=== PATIENT | male | born 1955 | race Caucasian/White ===

== ENCOUNTER 2017-07-14 16:30 | Outpatient (CLI) | payer BC | END 2017-07-14 16:31 | disposition home or self-care (01) | LOC: SLEEPLAB 16:30 | PROVIDERS: ATTEND Family Medicine | DX: G47.33 Obstructive sleep apnea (adult) (pediatric) (principal); G47.10 Hypersomnia, unspecified; G47.9 Sleep disorder, unspecified; R53.83 Other fatigue; R09.89 Other specified symptoms and signs involving the circulatory and respiratory systems; E66.9 Obesity, unspecified; K21.9 Gastro-esophageal reflux disease without esophagitis; R06.83 Snoring; G47.00 Insomnia, unspecified; F41.8 Other specified anxiety disorders; I10 Essential (primary) hypertension; E11.9 Type 2 diabetes mellitus without complications | CPT/HCPCS: 95806 ==

== ENCOUNTER 2017-07-16 20:30 | Outpatient (CLI) | payer BC | END 2017-07-16 20:31 | disposition home or self-care (01) | LOC: SLEEPLAB 20:30 | PROVIDERS: ATTEND Family Medicine | DX: G47.33 Obstructive sleep apnea (adult) (pediatric) (principal); G47.10 Hypersomnia, unspecified; R53.83 Other fatigue; E66.9 Obesity, unspecified; K21.9 Gastro-esophageal reflux disease without esophagitis; E11.9 Type 2 diabetes mellitus without complications; I10 Essential (primary) hypertension; F41.8 Other specified anxiety disorders | CPT/HCPCS: 95811 ==

== ENCOUNTER 2017-11-25 16:03 | Outpatient (CLI) | payer BC ==
--- NOTE | 2017-11-25 18:14 | CT ---
CT CHEST NONCONTRAST PULMONARY LUNG SCAN LOW DOSE: Date: 11/25/17 HISTORY: Lung nodule screening. Tobacco abuse. COMPARISON: 11/01/16. FINDINGS: Lungs are well inflated. No focal mass. Scattered vascular calcifications are apparent within the pul monary vessels. Minimal calcification in the aortic arch. Calcification of the coronary arteries. Lack of contrast limits evaluation of the soft tissues. No bulky mediastinal adenopathy. Postoperativ e changes cervical spine. IMPRESSION: 1. Lung-RADS Category 1 - Negative. Suggest routine follow-up. 2. Atherosclerosis. POS: [facility]
== END 2017-11-25 16:04 | disposition home or self-care (01) ==
LOC: CT 16:03
PROVIDERS: ATTEND Family Medicine
DX: F17.210 Nicotine dependence, cigarettes, uncomplicated (principal); I70.90 Unspecified atherosclerosis
CPT/HCPCS: G0297

== ENCOUNTER 2017-12-04 06:28 | Day surgery (SDC) | payer BC ==
[2017-12-03 09:19] VITALS: BMI 31.4
[2017-12-04] MEDS ORDERED: Bupivacaine PF 0.5% 30 ML VIAL ONE (06:35)
[2017-12-04] MEDS ORDERED: Lidocaine 1% w/Epinephrine 1:100K 30 ML VIAL ONE (06:35)
[2017-12-04] MEDS ORDERED: Lidocaine 1% (PF) 30 ML VIAL ONE (06:36)
[2017-12-04] MEDS ORDERED: Bupivacaine HCl 0.5%/Epinephrine 1:200,000/PF 30 ml Vial ONE (08:15)
[2017-12-04] MEDS ORDERED: Fentanyl 100 MCG/2 ML VIAL ONE (09:01)
[2017-12-04] MEDS ORDERED: Midazolam HCl 2 mg/2 ml Vial ONE (09:02)
--- NOTE | 2017-12-04 13:38 | OP ---
DATE OF PROCEDURE: 12/04/2017 PREOPERATIVE DIAGNOSES: 1. Dupuytren's contracture of the left ring finger. 2. Digital nerve injury, left ring finger. 3. Skin lesion left hand. POSTOPERATIVE DIAGNOSES: 1. Dupuytren's contracture of the left ring finger. 2. Digital nerve injury, left ring finger. 3. Skin lesion left hand. PROCEDURES: 1. Exploration of left palm and ring finger with excision of Dupuytren's cords. 2. Repair of the ulnar digital nerve, repair of the radial digital nerve to the ring finger. 3. Excision of skin lesion left hand. SURGEON: Gadiel De La Rosa M.D. OPERATIVE NOTE: The patient was brought to the operating room and after administration of general an esthetic intubation, the left upper extremity was prepped and draped in the usual fashion and the gelacio rniquet was inflated. A longitudinal zigzag Lisa type incision was made starting in the palm and extending out to the lev el of the DIP joint of the ring finger. Very carefully triangular flaps were reflected exposing Dupu ytren's cords which were carefully excised. The radial digital nerve and the ulnar digital nerve to the ring finger were both carefully inspected in the palm and did not appear to have any injury to th em. The dissection was then carried out into the finger resecting more of the Dupuytren's cord and o n the radial side of the ring finger at about the level of the PIP joint the nerve was stuck to the D upuytren's cord and was about 70% lacerated at this level. The cord was resected and the nerve was c leaned off. The dorsal branch of the digital nerve was just proximal to the area of injury. A secon d area of injury was found just proximal to the first area where the epineurium had been skived off o f the nerve and the fascicles were exposed. A 3 mm conduit was presoaked in saline and then cut into 2 pieces and the shorter piece was placed around the 70% laceration after cleaning up the ends. Thi s was done by longitudinally splitting the conduit and then wrapping it around the nerve and sewing i t snug on each end. The longer portion of the conduit was then placed around the area just proximal to this, again in the same manner using 9-0 suture to secure the conduit. The wound was then copious ly irrigated, the tourniquet was released and the skin was closed with 5-0 nylon sutures. 0.5% Michael ine with epinephrine was injected into the skin. The hand was turned over and a 4 mm lesion was identified over the dorsum of the fifth metacarpal hea d. An excisional biopsy was done longitudinally and elliptically and a 4-0 silk stitch was placed in the distal end of the excised skin. A generous cuff of tissue was taken around the lesion measuring approximately 4-5 mm. The skin lesion was then sent to pathology. The skin was closed with interru pted 5-0 nylon sutures. A well-padded bulky dressing was applied and the patient was taken to the re covery room in satisfactory condition. He was monitored. When he was awake and stable, he was discharged home. He was given prescriptions for pain medication, wound care instructions, and followup appointment.
[2017-12-04] MEDS ORDERED: HYDROcodone/Acetaminophen 5/325 mg Tablet ONE (14:01)
[2017-12-04] MEDS ORDERED: Glycopyrrolate 0.2 MG/ML 5 ML SYRINGE ONE (14:26)
[2017-12-04] MEDS ORDERED: PROPOFOL 200 MG/20 ML VIAL ONE (14:26)
[2017-12-04] MEDS ORDERED: Lidocaine 1% PF 5 ML VIAL ONE (14:26)
== END 2017-12-04 14:18 | disposition home or self-care (01) ==
LOC: SDC 06:28
PROVIDERS: ATTEND Orthopaedic Surgery
PROC: 0LN80ZZ Release Left Hand Tendon, Open Approach (ICD-10-PCS; principal; 2017-12-04)
PROC: 01R Peripheral Nervous System, Replacement (ICD-10-PCS; principal; 2017-12-04)
PROC: 0JNK0ZZ Release Left Hand Subcutaneous Tissue and Fascia, Open Approach (ICD-10-PCS; principal; 2017-12-04)
PROC: 0HBGXZZ Excision of Left Hand Skin, External Approach (ICD-10-PCS; principal; 2017-12-04)
DX: S64.495A Injury of digital nerve of left ring finger, initial encounter (principal); L82.1 Other seborrheic keratosis; M72.0 Palmar fascial fibromatosis [Dupuytren]; E11.9 Type 2 diabetes mellitus without complications; Z79.82 Long term (current) use of aspirin; Z79.84 Long term (current) use of oral hypoglycemic drugs; Z79.899 Other long term (current) drug therapy
CPT/HCPCS: 88305; 93005; 93010; J0670; J2001; J2250; J2704; J3010; S0020

== ENCOUNTER 2018-04-15 08:49 | Outpatient (CLI) | payer BC ==
--- NOTE | 2018-04-15 11:02 | ULT ---
THYROID ULTRASOUND: 04/15/2018 HISTORY: Thyroid nodules. Follow-up evaluation. COMPARISON: 03/11/2016 FINDINGS: The right lobe of the thyroid gland measures 4.9 cm x 2.4 cm x 1.9 cm, with the left lobe measuring 5 .1 cm x 2.2 cm x 1.8 cm. The thyroid isthmus measures 0.34 cm in AP dimension. There are several small, subcentimeter, heterogeneous, and hypoechoic nodules seen within each lobe o f the thyroid gland. The largest nodules are seen within the inferior pole, right lobe of the thyroi d gland, with two heterogeneous nodules present, each measuring approximately 1.1 cm in maximal dimen sions. There was a heterogeneous nodule on the prior exam, which measured approximately 1.1 cm, with a hypoechoic nodule seen on the prior exam, measuring approximately 1 cm. Additional much smaller, less than 1 cm, slightly heterogeneous nodules are present within each lobe of the thyroid gland, which measure less than 0.8 cm. There are at least three slightly heterogeneou s nodules within the junction of the mid portion and superior pole, of each lobe of the thyroid gland , as well as a small, hypoechoic nodule in the region of the thyroid isthmus. The nodules in the inf erior pole, left lobe of the thyroid gland, noted on the prior exam, are not visualized on today's st udy. IMPRESSION: 1. Multinodular thyroid gland, with the largest nodules again present at the inferior pole, right lo be of the thyroid gland, measuring 1.1 cm. 2. There was mention of a soft tissue lesion abutting the inferior margin of the left lobe of the th yroid gland, on CT examination from 08/27/2016. This is not visualized on the provided sonographic i mages on today's examination. POS: [facility]
== END 2018-04-15 08:50 | disposition home or self-care (01) ==
LOC: SCSULT 08:49
PROVIDERS: ATTEND Otolaryngology Plastic Surgery within the Head & Neck
DX: E04.2 Nontoxic multinodular goiter (principal)
CPT/HCPCS: 76536

== ENCOUNTER 2018-08-19 06:59 | Outpatient (CLI) | payer BC ==
--- NOTE | 2018-08-19 07:40 | ULT ---
Sonogram abdomen complete HISTORY: Upper abdomen pain. FINDINGS: Gallbladder has a normal appearance. Common duct is 0.5 cm. Liver unremarkable without foca l mass or intrahepatic biliary dilatation. No free fluid. Prominence of the spleen and kidneys are within normal limits allowing for the patient's size. Visualized portions of the abdominal aorta, IVC , and pancreas are unremarkable. IMPRESSION: Normal abdominal sonogram.
== END 2018-08-19 07:00 | disposition home or self-care (01) ==
LOC: SCSULT 06:59
PROVIDERS: ATTEND Family Medicine
DX: R10.84 Generalized abdominal pain (principal)
CPT/HCPCS: 76700

== ENCOUNTER 2018-12-16 15:52 | Outpatient (CLI) | payer BC ==
--- NOTE | 2018-12-16 19:33 | CT ---
CT pulmonary lung scan without IV contrast INDICATION: Lung cancer screening protocol; current smoker; 1 pack per day for 40+ years COMPARISON: Prior exam dated November 25, 2017 FINDINGS: LUNGS: Nodules\mass: No suspicious pulmonary nodules are present. There is subsegmental volume loss involvin g both lower lobes. Emphysema: There is mild scattered centrilobular emphysema Additional findings: There are coronary artery and thoracic aortic calcifications. No pathologically enlarged lymph nodes are evident. Mediastinum: There are stable few shotty appearing lymph nodes seen along the esophagus. Upper abdomen: No abnormality. Osseous structures: No acute abnormality.. IMPRESSION: Lung-RADS Category 1: Negative- Continue annual screening with LDCT in 12 months. Category S: None. Category C: Not applicable.
== END 2018-12-16 15:53 | disposition home or self-care (01) ==
LOC: CT 15:52
PROVIDERS: ATTEND Family Medicine
DX: F17.210 Nicotine dependence, cigarettes, uncomplicated (principal)
CPT/HCPCS: G0297

== ENCOUNTER 2019-02-16 00:46 | Emergency (ER) | payer BC ==
[2019-02-16] MEDS ORDERED: Lidocaine 1% w/Epinephrine 1:100K 20 ML VIAL ONE (00:56)
[2019-02-16] MEDS ORDERED: Ondansetron PF 4 MG/2 ML Vial ONE (00:56)
[2019-02-16] MEDS ORDERED: Morphine 4 MG/ML VIAL ONE (00:56)
[2019-02-16] MEDS ORDERED: Silver Nitrate Application 1 EACH ONE (01:31)
[2019-02-16] MEDS ORDERED: Bacitracin 1 PK ONE (01:47)
== END 2019-02-16 02:00 | disposition home or self-care (01) ==
LOC: ERS 00:46
DX: S91.012A Laceration without foreign body, left ankle, initial encounter (principal); E11.9 Type 2 diabetes mellitus without complications; Z71.6 Tobacco abuse counseling; Z79.84 Long term (current) use of oral hypoglycemic drugs; Z87.442 Personal history of urinary calculi; Z79.899 Other long term (current) drug therapy; W20.8XXA Other cause of strike by thrown, projected or falling object, initial encounter
CPT/HCPCS: 12002; 96374; 96375; 99406; J2270; J2405

== ENCOUNTER 2019-12-23 15:33 | Outpatient (CLI) | payer BC ==
--- NOTE | 2019-12-23 16:13 | CT ---
Low-dose screening chest CT: 12/23/2019 COMPARISON:12/16/2018 HISTORY:Current smoker, personal history of nicotine dependence TECHNIQUE: Serial axial CT imaging at2 mm intervals from thethoracic inlet through upper abdomen with out contrast. Coronal and sagittal reformatted imaging obtained Findings:Lack of contrast limits assessment of the imaged viscera, the vascular structures, and for l ymphadenopathy. Imaged upper abdomen appear grossly unremarkable. No pleural, pericardial, or mediastinal fluid. Scattered coronary arterial calcification noted. Limited assessment of the chest for lymphadenopathy appears grossly unremarkable. No pneumothorax is evident on either side. A vague new left upper lobe pulmonary nodule is noted axial image 19 measuring approximately 4-5 mm. No additional/discrete pulmonary parenchymal mass lesion/nodule noted on either side. No endobronchial lesion noted. Review of the osseous structures demonstrates multilevel thoracic spine anterior osteophyte formation . No discrete lytic or blastic bone lesion. Impression:Lung RADS category 3-probably benign. New 4-5 mm nodule in the left upper lobe. Recommend follow-up low-dose chest CT in 6 months.
== END 2019-12-23 15:34 | disposition home or self-care (01) ==
LOC: BICCT 15:33
PROVIDERS: ATTEND Family Medicine
DX: Z12.2 Encounter for screening for malignant neoplasm of respiratory organs (principal); F17.210 Nicotine dependence, cigarettes, uncomplicated; R91.1 Solitary pulmonary nodule
CPT/HCPCS: G0297

== ENCOUNTER 2020-06-28 13:30 | Outpatient (CLI) | payer BC ==
[2020-06-28] MEDS ORDERED: Iopamidol 370 76% 100 ML VIAL ONE (13:53)
--- NOTE | 2020-06-28 14:31 | CT ---
CT chest with IV contrast HISTORY: Left upper lobe lung nodule. Abnormal screening exam. COMPARISON: 12/23/2019. FINDINGS: The groundglass nodular density at the left lung apex on 12/23/2019 study is no longer visib le. Lungs are well-inflated with mild emphysematous changes. A hazy tiny density at the far medial aspect of the right middle lobe medial segment anteriorly is favored to represent subpleural atelecta sis. A 0.2 cm density in the far posterior lateral aspect of the left upper lobe is stable. No new masses. No pleural fluid or pneumothorax. There is calcification in the arterial structures. A partially calcified lymph node within the upper prevascular space of the mediastinum just to the left of midline is stable. A 0.9 cm short axis diameter right lower paraesophageal lymph node is less pronounced than on the prior study. Postoperative changes cervical spine partially visualized. IMPRESSION : Interval resolution of tiny left upper lobe groundglass nodule. Chronic-type findings are stable. No new abnormalities. Suggest routine screening exam.
== END 2020-06-28 13:31 | disposition home or self-care (01) ==
LOC: CT 13:30
PROVIDERS: ATTEND Family Medicine
DX: R91.1 Solitary pulmonary nodule (principal)
CPT/HCPCS: 71260; Q9967

== ENCOUNTER 2021-03-23 16:21 | Outpatient (CLI) | payer BC ==
[2021-03-23 18:10] LABS: Prothrombin Time 10.9 sec (9.5-12.1)
[2021-03-24 16:27] LABS: SARS-CoV-2 PCR by NAA Not Detected (NotDetected)
== END 2021-03-23 16:22 | disposition home or self-care (01) ==
LOC: LABBT 16:21
PROVIDERS: ATTEND Orthopaedic Surgery
DX: Z01.818 Encounter for other preprocedural examination (principal); M17.12 Unilateral primary osteoarthritis, left knee; Z20.822 Contact with and (suspected) exposure to COVID-19
CPT/HCPCS: 85610; 87081; 93005; 93010; U0003; U0005

== ENCOUNTER 2021-03-27 05:32 | Inpatient (IN) | payer BC ==
[2021-03-21 11:18] VITALS: BMI 32.1
[2021-03-27] MEDS ORDERED: Tranexamic Acid 1,000 MG/10 ML VIAL ONE (05:57)
[2021-03-27] MEDS ORDERED: ceFAZolin Sodium (SDC) 2 GM/100 ML BAG ONE (05:57)
[2021-03-27] MEDS ORDERED: Sodium Chloride 0.9% 100 ML ONE (05:58)
[2021-03-27] MEDS ORDERED: Fentanyl 100 MCG/2 ML VIAL ONE ×4 (06:22→09:20)
[2021-03-27] MEDS ORDERED: Midazolam HCl 2 mg/2 ml Vial ONE ×2 (06:22→06:48)
[2021-03-27] MEDS ORDERED: Vancomycin 1.5 GRAM/300 ML BAG 1.5 GM in Premix Bag 1 BAG IVPB SCH (06:30)
[2021-03-27] MEDS ORDERED: Ondansetron PF 4 MG/2 ML Vial ONE (07:11)
[2021-03-27] MEDS ORDERED: Lidocaine 1% PF 5 ML VIAL ONE (07:11)
[2021-03-27] MEDS ORDERED: Bupivacaine HCl 0.5%/Epinephrine 1:200,000/PF 30 ml Vial ONE (07:11)
[2021-03-27] MEDS ORDERED: Dexamethasone 20 MG/5 ML VIAL ONE (07:11)
[2021-03-27] MEDS ORDERED: PROPOFOL 200 MG/20 ML VIAL ONE (07:11)
[2021-03-27] MEDS ORDERED: Zolpidem Tartrate 5 MG TAB PO PRN ×2 (07:19→07:30)
[2021-03-27] MEDS ORDERED: Ondansetron PF 4 MG/2 ML Vial IVP PRN ×2 (07:19→07:30)
[2021-03-27] MEDS ORDERED: Acetaminophen 325 MG TAB PO PRN (07:19)
[2021-03-27] MEDS ORDERED: diphenhydrAMINE 25 MG CAP PO PRN (07:19)
[2021-03-27] MEDS ORDERED: Promethazine HCl 25 MG/ML VIAL IM PRN ×4 (07:19→09:11)
[2021-03-27] MEDS ORDERED: HYDROcodone/Acetaminophen 10/325 mg Tablet PO PRN ×3 (07:19→07:30)
[2021-03-27] MEDS ORDERED: Fentanyl 100 MCG/2 ML VIAL SLOW IVP PRN (07:30)
[2021-03-27] MEDS ORDERED: Ropivacaine 0.2% 550 ML 550 ML NERVE BLCK SCH (07:30)
[2021-03-27] MEDS ORDERED: traMADol HCl 50 MG TAB PO PRN ×2 (07:30)
[2021-03-27] MEDS ORDERED: Bupivacaine PF 0.5% 30 ML VIAL ONE (08:03)
[2021-03-27] MEDS ORDERED: HYDROmorphone 0.5 MG/0.5 ML SYRINGE ONE (08:58)
[2021-03-27] MEDS ORDERED: Aspirin 325 mg Enteric Coated Tablet PO SCH (09:00)
[2021-03-27] MEDS ORDERED: Promethazine HCl 25 MG/ML VIAL IVPB PRN ×2 (09:09→09:11)
[2021-03-27] MEDS ORDERED: Ondansetron HCl/PF 4 MG/2 ML Vial IVP PRN ×2 (09:09→09:11)
[2021-03-27] MEDS ORDERED: HYDROmorphone 2 MG/ML VIAL SLOW IVP PRN (09:11)
[2021-03-27] MEDS ORDERED: Dextrose 50% Abboject 50 ML SYRINGE SLOW IVP PRN (10:56)
[2021-03-27] MEDS ORDERED: Dextrose 5% in Water 1,000 ML IV PRN (10:56)
[2021-03-27] MEDS: Aspirin 81 mg Enteric Coated Tablet PO SCH ×2 (11:04→21:29)
[2021-03-27] MEDS: Vit A,C & E/Lutein/Minerals Tablet PO SCH (11:43)
[2021-03-27] MEDS: Lisinopril 2.5 MG TAB PO SCH (11:43)
[2021-03-27] MEDS: Magnesium Oxide 250 MG TAB PO SCH (11:43)
[2021-03-27] MEDS: Nicotine 21 MG PATCH TD SCH (11:44)
[2021-03-27] MEDS: Bupropion 150 MG XL TAB PO SCH (11:44)
[2021-03-27] MEDS: Tamsulosin HCl 0.4 MG CAP PO SCH (11:44)
[2021-03-27] MEDS: Allopurinol 100 MG TAB PO SCH (11:44)
[2021-03-27] MEDS: Escitalopram Oxalate 10 mg Tablet PO SCH (11:44)
[2021-03-27] MEDS: Sodium Chloride 0.9% 1,000 ML IV SCH ×2 (11:46→17:01)
[2021-03-27] MEDS ORDERED: hydrALAZINE 20 MG/ML VIAL SLOW IVP PRN (12:48)
[2021-03-27] MEDS ORDERED: CEFAZOLIN 2 GM in Premix Bag 1 BAG IVPB SCH (14:00)
[2021-03-27] MEDS: HYDROcodone/Acetaminophen 10/325 mg Tablet PO PRN ×2 (14:42→19:35)
[2021-03-27] MEDS: HumaLOG 300 UNITS/3 ML VIAL SC PRN ×3 (14:44→21:31)
[2021-03-27] MEDS ORDERED: ceFAZolin Sodium (SDC) 2 GM in Premix Bag 1 BAG IVPB SCH (15:00)
[2021-03-27] MEDS: metFORMIN XR 500 MG TAB PO SCH (17:00)
[2021-03-27] MEDS: CEFAZOLIN 2 GM, Admixture Fee 1 EACH in Sodium Chloride 0.9% 100 ML IVPB SCH (17:01)
[2021-03-27] MEDS: hydrOXYzine 25 MG TAB PO SCH (21:29)
[2021-03-27] MEDS: Latanoprost 0.005% Ophth Soln 2.5 ml Bottle EA EYE SCH (21:29)
[2021-03-28] MEDS: HYDROcodone/Acetaminophen 10/325 mg Tablet PO PRN ×4 (00:05→17:26)
[2021-03-28] MEDS: CEFAZOLIN 2 GM, Admixture Fee 1 EACH in Sodium Chloride 0.9% 100 ML IVPB SCH (01:23)
[2021-03-28] MEDS: Sodium Chloride 0.9% 1,000 ML IV SCH ×2 (04:58→07:32)
[2021-03-28 06:14] LABS: Hemoglobin 12.6 g/dL (14.0-18.0); Mean Corpuscular HGB CONC 32.5 g/dL (32.0-36.0); Mean Corpuscular Volume 95.3 fL (78.0-98.0); Mean Platelet Volume 6.6 fL (7.4-10.4); Platelet Count 280 thou/uL (130-400); Red Blood Cell (RBC) Count 4.07 mill/uL (4.70-6.10); White Blood Cell (WBC) Count 11.5 thou/uL (4.8-10.8)
[2021-03-28] MEDS: HumaLOG 300 UNITS/3 ML VIAL SC PRN ×3 (06:43→20:33)
[2021-03-28] MEDS: Multivitamin W/ Minerals 1 TAB PO SCH (07:24)
[2021-03-28] MEDS: Aspirin 81 mg Enteric Coated Tablet PO SCH ×2 (07:24→20:32)
[2021-03-28] MEDS: Tamsulosin HCl 0.4 MG CAP PO SCH (07:24)
[2021-03-28] MEDS: metFORMIN XR 500 MG TAB PO SCH ×2 (07:24→17:25)
[2021-03-28] MEDS: Vit A,C & E/Lutein/Minerals Tablet PO SCH (07:24)
[2021-03-28] MEDS: Escitalopram Oxalate 10 mg Tablet PO SCH (07:24)
[2021-03-28] MEDS: Senokot S 8.6-50 MG TAB PO SCH ×2 (07:24→20:32)
[2021-03-28] MEDS: Magnesium Oxide 250 MG TAB PO SCH (07:24)
[2021-03-28] MEDS: Ferrous Gluconate 324 MG TAB PO SCH ×2 (07:24→17:27)
[2021-03-28] MEDS: Lisinopril 2.5 MG TAB PO SCH (07:25)
[2021-03-28] MEDS: Allopurinol 100 MG TAB PO SCH (07:25)
[2021-03-28] MEDS: Bupropion 150 MG XL TAB PO SCH (07:25)
[2021-03-28] MEDS: Nicotine 21 MG PATCH TD SCH (07:32)
[2021-03-28] MEDS ORDERED: Lantus 1000 UNITS/10 ML VIAL SC SCH (11:40)
[2021-03-28] MEDS ORDERED: Ketorolac Tromethamine 30 MG/ML VIAL IVP SCH (13:15)
[2021-03-28] MEDS: Lantus 1000 UNITS/10 ML VIAL SC SCH (13:27)
[2021-03-28] MEDS: Ketorolac Tromethamine 30 MG/ML VIAL IVP SCH ×2 (17:28→23:28)
[2021-03-28] MEDS: hydrOXYzine 25 MG TAB PO SCH (20:32)
[2021-03-28] MEDS: Latanoprost 0.005% Ophth Soln 2.5 ml Bottle EA EYE SCH (20:33)
[2021-03-29] MEDS: Sodium Chloride 0.9% 1,000 ML IV SCH ×2 (00:48→11:29)
[2021-03-29] MEDS: Ketorolac Tromethamine 30 MG/ML VIAL IVP SCH ×2 (05:46→12:52)
[2021-03-29] MEDS: HumaLOG 300 UNITS/3 ML VIAL SC PRN (07:03)
[2021-03-29] MEDS: Lisinopril 2.5 MG TAB PO SCH (08:53)
[2021-03-29] MEDS: Aspirin 81 mg Enteric Coated Tablet PO SCH (08:53)
[2021-03-29] MEDS: Ferrous Gluconate 324 MG TAB PO SCH (08:53)
[2021-03-29] MEDS: Multivitamin W/ Minerals 1 TAB PO SCH (08:54)
[2021-03-29] MEDS: Escitalopram Oxalate 10 mg Tablet PO SCH (08:54)
[2021-03-29] MEDS: Tamsulosin HCl 0.4 MG CAP PO SCH (08:54)
[2021-03-29] MEDS: Magnesium Oxide 250 MG TAB PO SCH (08:54)
[2021-03-29] MEDS: Allopurinol 100 MG TAB PO SCH (08:54)
[2021-03-29] MEDS: metFORMIN XR 500 MG TAB PO SCH (08:54)
[2021-03-29] MEDS: Bupropion 150 MG XL TAB PO SCH (08:55)
[2021-03-29] MEDS: Senokot S 8.6-50 MG TAB PO SCH (08:56)
[2021-03-29] MEDS: Nicotine 21 MG PATCH TD SCH (08:56)
[2021-03-29] MEDS: Vit A,C & E/Lutein/Minerals Tablet PO SCH (08:58)
[2021-03-29] MEDS ORDERED: Lantus 1000 UNITS/10 ML VIAL SC SCH ×2 (09:00)
[2021-03-29] MEDS: Lantus 1000 UNITS/10 ML VIAL SC SCH (09:07)
[2021-03-29 11:29] VITALS: BP 157/91; TEMP 98.5
[2021-03-29] MEDS: HYDROcodone/Acetaminophen 10/325 mg Tablet PO PRN (11:35)
== END 2021-03-29 11:48 | disposition home or self-care (01) | DRG 470 ==
LOC: SDC 05:32 → SJJU 10:12 → EDSTATUS 16:30
PROVIDERS: ADMIT Orthopaedic Surgery; ATTEND Orthopaedic Surgery
PROC: 0SRD0J9 Replacement of Left Knee Joint with Synthetic Substitute, Cemented, Open Approach (ICD-10-PCS; principal; 2021-03-27)
PROC: 8E0YXBZ Computer Assisted Procedure of Lower Extremity (ICD-10-PCS; 2021-03-27)
DX: M17.12 Unilateral primary osteoarthritis, left knee (principal); Z20.822 Contact with and (suspected) exposure to COVID-19; G47.30 Sleep apnea, unspecified; J30.2 Other seasonal allergic rhinitis; H40.9 Unspecified glaucoma; E66.9 Obesity, unspecified; F41.9 Anxiety disorder, unspecified; F32.A Depression, unspecified; E11.9 Type 2 diabetes mellitus without complications; M10.9 Gout, unspecified; F17.210 Nicotine dependence, cigarettes, uncomplicated; Z79.82 Long term (current) use of aspirin; Z99.89 Dependence on other enabling machines and devices; Z79.899 Other long term (current) drug therapy; Z79.84 Long term (current) use of oral hypoglycemic drugs; Z68.32 Body mass index [BMI] 32.0-32.9, adult
CPT/HCPCS: 36415; 36416; 85027; 93306; A4306; C1713; C1776; J0690; J1100; J1170; J1815; J1885; J2250; J2405; J2704; J2795; J3010; J3370; J3490; J7050; S0020

== ENCOUNTER 2021-11-02 05:56 | Day surgery (SDC) | payer BC ==
[2021-10-31 11:45] VITALS: BMI 32.1
[2021-11-02] MEDS ORDERED: Lidocaine 1% PF 5 ML VIAL ONE (08:24)
[2021-11-02] MEDS ORDERED: PROPOFOL 200 MG/20 ML VIAL ONE (08:24)
[2021-11-02] MEDS ORDERED: Glycopyrrolate 0.2 MG/ML 5 ML SYRINGE ONE (08:24)
== END 2021-11-02 10:01 | disposition home or self-care (01) ==
LOC: SDC 05:56
PROVIDERS: ATTEND Internal Medicine
PROC: 0DBK8ZX Excision of Ascending Colon, Via Natural or Artificial Opening Endoscopic, Diagnostic (ICD-10-PCS; principal; 2021-11-02)
PROC: 0DBL8ZX Excision of Transverse Colon, Via Natural or Artificial Opening Endoscopic, Diagnostic (ICD-10-PCS; principal; 2021-11-02)
DX: Z12.11 Encounter for screening for malignant neoplasm of colon (principal); D12.2 Benign neoplasm of ascending colon; D12.3 Benign neoplasm of transverse colon; D17.79 Benign lipomatous neoplasm of other sites; Z86.010 Personal history of colon polyps; Z79.82 Long term (current) use of aspirin; Z79.84 Long term (current) use of oral hypoglycemic drugs; Z79.899 Other long term (current) drug therapy
CPT/HCPCS: 88305; J2704

== ENCOUNTER 2023-04-11 15:27 | Outpatient (CLI) | payer OTHER | END 2023-04-11 15:28 | disposition home or self-care (01) | LOC: SCSRAD 15:27 | PROVIDERS: ATTEND Nurse Practitioner Family | DX: R07.81 Pleurodynia (principal) ==

== ENCOUNTER 2023-05-28 23:53 | Observation (INO) | payer OTHER ==
[2023-05-29] MEDS ORDERED: Acetaminophen 325 MG TAB PO PRN (01:51)
[2023-05-29] MEDS ORDERED: Ondansetron ODT 4 MG TAB PO PRN (01:51)
[2023-05-29] MEDS ORDERED: Nicotine 21 MG PATCH TD SCH (02:00)
[2023-05-29] MEDS ORDERED: Nicotine 21 MG PATCH TD PRN (02:03)
[2023-05-29 02:25] VITALS: BMI 35.6
[2023-05-29] MEDS ORDERED: Dextrose 50% Abboject 50 ML SYRINGE SLOW IVP PRN (02:53)
[2023-05-29] MEDS ORDERED: Glucagon 1 MG/ML KIT IM PRN (02:53)
[2023-05-29] MEDS ORDERED: Dextrose 5% in Water 1,000 ML IV PRN (02:53)
[2023-05-29] MEDS ORDERED: HumaLOG 300 UNITS/3 ML VIAL SC PRN (02:53)
[2023-05-29] MEDS ORDERED: Furosemide 40 MG (4 mL) VIAL SLOW IVP SCH (03:15)
[2023-05-29 06:52] LABS: #Basophils 0.1 thou/uL (0.0-0.2); #Eosinphils 0.3 thou/uL (0.0-0.7); #Monocytes 0.4 thou/uL (0.11-0.59); #Neutrophils 2.9 thou/uL (1.40-6.50); %Basophils 1.2 % (0.0-1.0); %Eosinophils 5.3 % (0.0-10.0); %Monocytes 8.5 % (0.0-10.0); %Neutrophils 56.8 % (42.0-75.0); Hematocrit 46.6 % (42.0-52.0); Hemoglobin 15.2 g/dL (14.0-18.0); Mean Corpuscular HGB CONC 32.6 g/dL (32.0-36.0); Mean Corpuscular Volume 95.1 fl (78.0-98.0); Mean Platelet Volume 9.1 fL (7.4-10.4); Platelet Count 276 10x3/uL (130-400); RBC Distribution Width 13.6 % (11.5-14.5); White Blood Cell (WBC) Count 5.1 10x3/uL (4.8-10.8)
[2023-05-29 07:15] LABS: Anion Gap 13 mmol/L (10-20); BUN (Urea Nitrogen) 24 mg/dL (8.4-25.7); Calc. Creatinine Clearance 146 mL/min (70-130); Calcium 9.2 mg/dL (7.8-10.44); Carbon Dioxide 25 mmol/L (23-31); Cardiac Risk 5.8 (Less than 4.5); Chloride 105 mmol/L (98-107); Cholesterol 157 mg/dl (< 200 Desired); Estimated GFR 95; Glucose 192 mg/dL (80-115); HDL Cholesterol 27 mg/dL (>60 Neg Risk); LDL Cholesterol, Calculated 68 mg/dL; Potassium 4.3 mmol/L (3.5-5.1); Sodium 139 mmol/L (136-145); Triglycerides 308 mg/dL (Less than 150)
[2023-05-29 07:19] LABS: Troponin I Less than 0.010 ng/mL (< 0.028)
[2023-05-29] MEDS ORDERED: Enoxaparin 40 MG (0.4 mL) SYRINGE SC SCH (09:00)
[2023-05-29] MEDS ORDERED: Furosemide 40 MG TAB PO SCH (09:00)
[2023-05-29] MEDS ORDERED: Tamsulosin HCl 0.4 MG CAP PO SCH (09:00)
[2023-05-29] MEDS ORDERED: Allopurinol 100 MG TAB PO SCH (09:00)
[2023-05-29] MEDS ORDERED: Lisinopril 5 MG TAB PO SCH (09:00)
[2023-05-29] MEDS ORDERED: metFORMIN 500 MG TAB PO SCH (09:00)
[2023-05-29] MEDS ORDERED: CATH FS PRN (09:15)
[2023-05-29] MEDS ORDERED: Nitroglycerin 50 MG/250 ML BOT 250 ML ONE (10:20)
[2023-05-29] MEDS ORDERED: Verapamil 5 MG/2 ML VIAL ONE (10:20)
[2023-05-29] MEDS ORDERED: Adenosine 6 mg (2 mL) VIAL ONE (10:20)
[2023-05-29] MEDS ORDERED: Heparin 10,000 UNITS/ 10 ML VIAL ONE (10:20)
[2023-05-29] MEDS ORDERED: Midazolam HCl 2 mg/2 ml Vial ONE (11:16)
[2023-05-29] MEDS ORDERED: fentaNYL 50 mcg/mL 1 mL Vial ONE ×2 (11:16→11:53)
[2023-05-29] MEDS ORDERED: Nitroglycerin 0.4 MG TAB (25 Tab Bottle) SL PRN (12:09)
[2023-05-29] MEDS ORDERED: Acetaminophen/Codeine 30-300mg Tablet PO PRN ×2 (12:09)
[2023-05-29] MEDS ORDERED: Sodium Chloride 0.9% 200 ML IV PRN (12:09)
[2023-05-29] MEDS ORDERED: Sodium Chloride 0.9% 1,000 ML IV SCH (12:15)
[2023-05-29 16:18] VITALS: BP 110/77; TEMP 98.1
[2023-05-30] MEDS ORDERED: Empagliflozin 10 MG TAB PO SCH (09:00)
[2023-06-01] MEDS ORDERED: FLU VACC QS2023(65UP)/MF59C/PF 60 MCG/0.5 ML SYRINGE IM ONE (09:00)
== END 2023-05-29 16:19 | disposition home or self-care (01) ==
LOC: 2SW 23:53
PROVIDERS: ADMIT Family Medicine; ATTEND Family Medicine
PROC: 4A023N7 Measurement of Cardiac Sampling and Pressure, Left Heart, Percutaneous Approach (ICD-10-PCS; principal; 2023-05-29)
PROC: B200YZZ Plain Radiography of Single Coronary Artery using Other Contrast (ICD-10-PCS; 2023-05-29)
DX: R07.89 Other chest pain (principal); T46.7X1A Poisoning by peripheral vasodilators, accidental (unintentional), initial encounter; R60.0 Localized edema; I35.0 Nonrheumatic aortic (valve) stenosis; I87.8 Other specified disorders of veins; N40.0 Benign prostatic hyperplasia without lower urinary tract symptoms; E11.9 Type 2 diabetes mellitus without complications; M10.9 Gout, unspecified; E78.5 Hyperlipidemia, unspecified; F39 Unspecified mood [affective] disorder; F17.210 Nicotine dependence, cigarettes, uncomplicated; E66.9 Obesity, unspecified; Z68.35 Body mass index [BMI] 35.0-35.9, adult; Z96.659 Presence of unspecified artificial knee joint; Z90.89 Acquired absence of other organs; Z79.84 Long term (current) use of oral hypoglycemic drugs; Z79.899 Other long term (current) drug therapy
CPT/HCPCS: 80048; 80061; 82962; 83036; 84443; 84484; 85025; 93306; 93458; 93970; 96372; 96374; C1769 ×2; C1894; G0378; J3010; 36415; 36416; 99152; 99153; J0153; J1644; J1650; J1940; J2250

== ENCOUNTER 2024-06-24 10:55 | Outpatient (CLI) | payer OTHER ==
[2024-06-24 12:17] LABS: #Basophils 0.08 10x3/uL (0.0-0.2); %Basophils 1.2 % (0.0-1.0); %Eosinophils 2.8 % (0.0-10.0); %Lymphocytes 28.3 % (21.0-51.0); %Monocytes 8.9 % (0.0-10.0); %Neutrophils 58.5 % (42.0-75.0); Hematocrit 50.6 % (42.0-52.0); Hemoglobin 16.8 g/dL (14.0-18.0); Mean Corpuscular HGB CONC 33.2 g/dL (32.0-36.0); Mean Corpuscular Hemoglobin 30.4 pg (27.0-31.0); Mean Corpuscular Volume 91.7 fL (78.0-98.0); Mean Platelet Volume 10.2 fL (7.4-10.4); Platelet Count 308 10x3/uL (130-400); RBC Distribution Width 13.2 % (11.5-14.5); Red Blood Cell (RBC) Count 5.52 mill/uL (4.70-6.10)
[2024-06-24 12:47] LABS: Anion Gap 16 mmol/L (10-20); BUN (Urea Nitrogen) 23 mg/dL (8.4-25.7); Calc. Creatinine Clearance 0 mL/min (70-130); Carbon Dioxide 25 mmol/L (23-31); Chloride 104 mmol/L (98-107); Estimated GFR 100; Glucose 189 mg/dL (80-115); Potassium 4.6 mmol/L (3.5-5.1); Sodium 140 mmol/L (136-145)
[2024-06-24 12:49] LABS: ALT (SGPT) 15 U/L (Less than 45); AST (SGOT) 22 U/L (11-34); Alkaline Phosphatase 71 U/L (40-110); Bilirubin, Direct 0.2 mg/dL (0.1-0.3); Bilirubin, Total 0.6 mg/dL (0.3-1.2); Protein, Total 8.2 g/dL (5.8-8.1)
== END 2024-06-24 10:56 | disposition home or self-care (01) ==
LOC: LABBT 10:55
PROVIDERS: ATTEND Neurological Surgery
DX: Z01.818 Encounter for other preprocedural examination (principal); M71.38 Other bursal cyst, other site
CPT/HCPCS: 80048; 80076; 84153; 84403; 85025; 93005; 93010